=== PATIENT | male | born 1980 | race Caucasian/White ===

== ENCOUNTER 2022-04-05 16:55 | Emergency (ER) | payer OTHER, SELFPAY ==
[2022-04-05 17:20] VITALS: BP 124/78; PULSE 76; RESP 19; TEMP 36.5; O2SAT 99; BMI 21.4
--- NOTE | 2022-04-05 19:37 | ED.WOUNDLAC ---
HPI - Wound/Laceration <LYNN Liu Last Filed: 04/05/22 19:47> General Chief Complaint: Wound/Laceration Stated Complaint: Left hand laceration Source: patient Mode of arrival: Family Vehicle History of Present Illness HPI narrative: Patient is a 41-year-old male who presents emergency room today with complaint of laceration to left thumb. He was working with some nausea today and a knife slipped and cut his thumb. Was seen by paramedics for dressing was applied before he reported to the emergency room. Patient states he had tetanus shot about 5 years ago he declines wanting this time. Denies any other concerns Related Data Allergies Allergy/AdvReac Type Severity Reaction Status Date / Time No Known Drug Allergies Allergy Verified 04/05/22 17:44 Review of Systems <LYNN Liu Last Filed: 04/05/22 19:47> Review of Systems Narrative: R.O.S.: General: No fever, chills or fatigue. Cardiovascular: No chest pain or palpitations Respiratory: No S.O.B. HEENT: No congestion, ear pain, rhinorrhea, sore throat or tinnitus Gastrointestinal: No nausea or vomiting : No urinary concerns Skin: Laceration to the left thumb Musculoskeletal: No pain in muscles or joints, no limitation of range of motion, no paresthesia or numbness. ?? Neurological: Awake, alert and in not apparent distress. No Headaches, changes in vision or other related neurological concerns. Patient History <Fredi Mcrae PA-C - Last Filed: 04/05/22 19:47> Social History Smoking Status: Current every day smoker Smoking Status: Current every day smoker tobacco type: e-cigarettes alcohol intake frequency: a few times a week Substance Use Type: marijuana Exam <LYNN Liu Last Filed: 04/05/22 19:47> Narrative Exam Narrative: Physical Exam: ? General: normal appearance, well developed, well nourished, alert, and awake. Not in acute distress. ? Head: Normocephalic, no lesions. Chest: Lungs CTAB, no rales, rhonchi or wheezes. ?? Heart: RRR, no murmurs, rubs or gallops. Eyes: PERRLA, EOM's full, conjunctivae clear. ? Neuro: Physiological, no localizing findings, CN3-12 intact. ?? Extremities: Warm, well perfused, FROM, no deformities, no edema. ?? Skin: Patient has a 3 cm clean lateral laceration to his distal thumb area. The laceration is on the volar side then starts at the base of the lateral nail and extends medially. There is mild erythema with moderate drainage. ? PSYCHIATRIC: The mood is good, no blunted affect. Speech is clear. Thought process is linear, thought content is appropriate. The voice is without significant inflection. Gastrointestinal: Soft; NT; ND; Pos BS with Neg. rebound tenderness. No scars or major deformities noted on Visual Inspection. Initial Vital Signs Initial Vital Signs: Vital Signs Temperature 97.7 F 04/05/22 17:20 Pulse Rate 76 04/05/22 17:20 Respiratory Rate 19 04/05/22 17:20 Blood Pressure 124/78 04/05/22 17:20 Pulse Oximetry 99 04/05/22 17:20 Oxygen Delivery Method 04/05/22 17:20 <Zulay Ayala DO - Last Filed: 04/06/22 06:24> Initial Vital Signs Initial Vital Signs: Vital Signs Temperature 97.7 F 04/05/22 17:20 Pulse Rate 76 04/05/22 17:20 Respiratory Rate 19 04/05/22 17:20 Blood Pressure 124/78 04/05/22 17:20 Pulse Oximetry 99 04/05/22 17:20 Oxygen Delivery Method 04/05/22 17:20 Procedures <Fredi Mcrae PA-C - Last Filed: 04/05/22 19:47> Laceration Repair Laceration 1: Site: hand Side (If applicable): left Size (cm): 3 Description: linear Depth: simple, single layer Local Anesthetic: bupivacaine 0.5% Skin layer closed with: nylon Skin layer suture size: 4-0 Number of sutures: 8 Technique: simple, interrupted Course <LYNN Liu Last Filed: 04/05/22 19:47> Orders Ordered: Discontinued Medications Neomycin/Polymyxin/Bacitracin (Neomycin/Polymyxin/Bacitra Ud Oint) 2 each TOP NOW ONE Stop: 04/05/22 19:38 Last Admin: 04/05/22 19:47 Dose: 2 each Documented By: PRABHU Vital Signs Vital signs: Vital Signs - 8 hr 04/05/22 17:20 Temperature 97.7 F Pulse Rate 76 Respiratory Rate 19 Blood Pressure 124/78 Pulse Oximetry 99 Oxygen Delivery Method Room Air <Zulay Ayala DO - Last Filed: 04/06/22 06:24> Orders Ordered: Discontinued Medications Neomycin/Polymyxin/Bacitracin (Neomycin/Polymyxin/Bacitra Ud Oint) 2 each TOP NOW ONE Stop: 04/05/22 19:38 Last Admin: 04/05/22 19:47 Dose: 2 each Documented By: PRABHU Vital Signs Vital signs: Vital Signs - 8 hr 04/05/22 17:20 Temperature 97.7 F Pulse Rate 76 Respiratory Rate 19 Blood Pressure 124/78 Pulse Oximetry 99 Oxygen Delivery Method Room Air MDM - Wound/Laceration <Fredi Mcrae PA-C - Last Filed: 04/05/22 19:47> MDM Narrative Medical decision making narrative: Patient is a 41-year-old male who presents to the emergency room today with complaint laceration to left thumb that occurred earlier today while he was using denies. Admits to having tetanus prophylaxis. On evaluation patient had a 3 cm linear clean laceration to left distal thumb area. 4 Vicryl suture was used to insert 8 interrupted sutures to close the laceration without complications. Dressing and triple antibiotic ointment applied and patient was given cleaning instructions and advised to return to the emergency room with walking clinic in 7 days for suture removal. Discharge Plan Departure Patient Disposition: Home Clinical Impression: Laceration Instructions: DI for Laceration Repair Activity Restrictions/Additional Instructions: *You have been diagnosed with laceration to left thumb. Eight sutures were inserted to closure laceration today. You were given cleaning instructions after dressing was applied. Please refrain from allowing moisture or foreign body to enter the sutured area. Also please return to the emergency room Patti any emergent concerns arise. [ ] *What to do: *Please continue to take your regular medications as directed. [ ] New medication prescriptions sent to your pharmacy: [ ] [ ] New medication written as a paper prescription [x] No new medications given *Please follow up with your primary care provider in 2-3 days, call for an appointment. Let them know you were seen in the Emergency Department and that we ask that you be seen in follow up. We will electronically transmit a record of today's note if your PCP is in our system *If you do not have a primary care provider please contact the [facility] Resource line at [phone]. They will ask some questions about your medical history and help get you set up with a doctor in the community. *Return to Emergency Department if you should have any new, worsening or concerning symptoms, such as [fever greater than 101 F, shaking chills, worsening pain, persistent vomiting or other bothersome symptoms] Visit Report Forms: Patient Portal/API <Zulay Ayala, - Last Filed: 04/06/22 06:24> Cosign ED Attending Victoria Attestation: I was immediately available in the department for consultation. Documentation has been reviewed.
[2022-04-05] MEDS: NEOMYCIN/POLYMYXIN/BACITRA UD OINT 2 EACH TOP (19:47)
== END 2022-04-05 19:51 | disposition home or self-care (01) ==
PROVIDERS: Emergency Provider Physician Assistant
DX: S61.012A Laceration without foreign body of left thumb without damage to nail, initial encounter (principal); W26.0XXA Contact with knife, initial encounter
CPT/HCPCS: 12002; 99283